=== PATIENT | female | born 1990 | race African-American/Black ===

== ENCOUNTER 2018-07-30 07:38 | Emergency (ER) | payer MEDICAID ==
[~2018-07-30] VITALS: Ht 160 cm; Wt 80.0 kg
[2018-07-30] MEDS ORDERED: KETOROLAC 60MG/2ML VIAL IM ONE (08:30)
[2018-07-30 08:31] VITALS: BP 147/92
== END 2018-07-30 09:19 | disposition home or self-care (01) ==
LOC: ER 07:38
DX: J02.0 Streptococcal pharyngitis (principal); R03.0 Elevated blood-pressure reading, without diagnosis of hypertension; F17.210 Nicotine dependence, cigarettes, uncomplicated; F12.90 Cannabis use, unspecified, uncomplicated
CPT/HCPCS: 81025; 87430; 96372; 99283; J1885